=== PATIENT | female | born 1960 | race Caucasian/White ===

== ENCOUNTER 2018-12-20 06:42 | Emergency (ER) | payer OTHER ==
[~2018-12-20] VITALS: Ht 167.6 cm; Wt 102.1 kg
[~2018-12-20 06:42] MED LIST: ASCO500T8 PO; B 12; COCO1000 PO; CYAN1TAB29 PO; FISH OIL GUMMY PO; FOLI1TAB47 PO; LACT1CAP35 PO; MULT-658 PO; PANT40TA3 PO; iron PO
[2018-12-20 06:43] VITALS: BP 145/85
[2018-12-20] MEDS ORDERED: CHOLESTEROL MED (06:48)
[2018-12-20] MEDS ORDERED: B/P MED (06:48)
--- NOTE | 2018-12-20 08:00 | NUR ---
MUSIC MIXER: PT TO ROOM FROM [facility]
--- NOTE | 2018-12-20 08:12 | NUR ---
PT AMBULATORY TO ROOM. STATES SHE HAS BEEN HAVING NAUSEA/DIARRHEA FOR THE LAST 4 DAYS- ANY TIME SHE EATS SHE EXPERIENCES BOTH. STATES SHE FEELS NAUSEAS ALL THE TIME "EVEN WHILE STANDING." PT STATES SHE HAS NUMBNESS/TINGLING IN BILATERAL ARMS BUT THAT HAS BEEN PRESENT A LONG TIME AND IS NORMAL. PT STATES SHE IS SOB WHEN CLIMBING STAIRS AND IS ALWAYS TIRED, OFTEN FALLING ASLEEP AT HOME. PT STATES SHE IS DIZZY AND OFTEN FEELS LIKE PASSING OUT. PT IS HAVING CLEAR CONVERSATIONS WITH THIS RN IN FULL SENTENCES. 98% ON RA. DENIES CP. STATES SHE IS SOB. STATES SHE FOLLOWED UP WITH PRIMARY MD WHO STATES SHE SHOULD GET MULTIPLE TESTS AND PT STATES SHE CANNOT AFFORD THEM. VERNON. VSS. CALL LIGHT IN REACH. PT RESTING ON [employer].
[2018-12-20 08:21] LABS: BASOPHILS % (AUTO) 1 % (0-1); EOSINOPHILS % (AUTO) 2 % (1-7); LYMPHOCYTES # (AUTO) 2.89 x10^3/uL (1-3.4); LYMPHOCYTES % (AUTO) 33 % (22-44); MD NO; MEAN CORPUSCULAR HEMOGLOBIN 30.1 pg (27.0-34.8); MEAN CORPUSCULAR HGB CONC 32.9 g/dL (32.4-35.8); MEAN CORPUSCULAR VOLUME 91.5 fL (80-100); MEAN PLATELET VOLUME 7.5 fL (7.4-10.4); MONOCYTES # (AUTO) 0.73 x10^3/uL (0.2-0.8); MONOCYTES % (AUTO) 8 % (2-9); NEUTROPHILS # (AUTO) 4.83 x10^3/uL (1.8-6.8); NEUTROPHILS % (AUTO) 55 % (42-75); PLATELET COUNT 277 x10^3/uL (130-400); RED BLOOD COUNT 4.43 x10^6/uL (3.82-5.3); RED CELL DISTRIBUTION WIDTH 13.3 % (9.6-15.2)
[2018-12-20 08:32] LABS: ALANINE AMINOTRANSFERASE 26 U/L (12-78); ALBUMIN 3.4 g/dL (3.4-5.0); ANION GAP 7 mmol/L (5-15); CALCIUM 8.7 mg/dL (8.5-10.1); CHLORIDE 110 mmol/L (98-107); CREATININE 0.91 mg/dL (0.55-1.02)
[2018-12-20 08:36] LABS: ALKALINE PHOSPHATASE 117 U/L (45-117); BILIRUBIN,TOTAL 0.8 mg/dL (0.2-1.0); TOTAL PROTEIN 7.2 g/dL (6.4-8.2); TROPONIN I < 0.015 ng/mL (0.000-0.045)
== END 2018-12-20 09:13 | disposition home or self-care (01) ==
LOC: ED 08:59
DX: R11.0 Nausea (principal); K21.9 Gastro-esophageal reflux disease without esophagitis; I10 Essential (primary) hypertension; E78.00 Pure hypercholesterolemia, unspecified; R06.00 Dyspnea, unspecified; R07.9 Chest pain, unspecified; Z90.710 Acquired absence of both cervix and uterus
CPT/HCPCS: 36415; 71046; 80053; 83880; 84484; 85025; 93005; 99284

== ENCOUNTER 2019-06-11 07:29 | Outpatient (CLI) | payer OTHER ==
[~2019-06-11 07:29] MED LIST changes: +B/P MED; +CHOLESTEROL MED
[2019-06-11] MEDS ORDERED: REGADENOSON 0.4 MG/5 ML SYRINGE ONE (07:31)
== END 2019-06-11 23:59 | disposition home or self-care (01) ==
LOC: CFH 07:29
PROVIDERS: ATTEND Internal Medicine Cardiovascular Disease
DX: I35.8 Other nonrheumatic aortic valve disorders (principal); R06.02 Shortness of breath; R07.9 Chest pain, unspecified; I10 Essential (primary) hypertension
CPT/HCPCS: 78452; 93017; 93306; A9502; J2785